=== PATIENT | female | born 1945 | race Hispanic/Latino ===

== ENCOUNTER → 2019-11-06 | Outpatient (CLI) | payer MEDICARE ==
[~2019-11-06] MED LIST: ADV250 IH; AMLO10TA7 PO; ATOR10 PO; CIPR-245 PO; GABA-533 PO; GLIP10TA9 PO; LEVO50TA11 PO; LOSA100T58 PO; MELO-106 PO; METF-446 PO; MONT10TA24 PO; SERT50TA12 PO; TRAZ-185 PO; WARF-57 PO
== END | disposition home or self-care (01) ==
LOC: OIH 09:19
PROVIDERS: ATTEND Family Medicine
DX: R06.02 Shortness of breath (principal); I70.0 Atherosclerosis of aorta; M47.815 Spondylosis without myelopathy or radiculopathy, thoracolumbar region
CPT/HCPCS: 71046

== ENCOUNTER → 2020-01-17 | Outpatient (CLI) | payer MEDICARE ==
[~2020-01-17] MED LIST changes: -MONT10TA24 PO; +MONT10TA26 PO
== END | disposition home or self-care (01) ==
LOC: RAH 10:17
PROVIDERS: ATTEND Family Medicine
DX: Z12.31 Encounter for screening mammogram for malignant neoplasm of breast (principal)
CPT/HCPCS: 77067

== ENCOUNTER 2020-02-08 10:32 | Emergency (ER) | payer MEDICARE ==
[2020-02-08] MEDS ORDERED: ONDANSETRON ODT 4 MG TAB ONE (11:07)
[2020-02-08] MEDS ORDERED: MORPHINE SULFATE 4 MG/1ML SYG ONE (11:07)
== END 2020-02-08 12:38 | disposition home or self-care (01) ==
LOC: EDH 10:32
DX: M25.511 Pain in right shoulder (principal); E11.9 Type 2 diabetes mellitus without complications; I10 Essential (primary) hypertension; J45.909 Unspecified asthma, uncomplicated; M19.90 Unspecified osteoarthritis, unspecified site
CPT/HCPCS: 96372; 99283; J2270

== ENCOUNTER → 2024-03-18 | Outpatient (CLI) | payer OTHER, MEDICARE ==
[~2024-03-18] MED LIST changes: +ACET-2079 PO; -ADV250 IH; -AMLO10TA7 PO; +APIX2.5T PO; +CETI10TA57 PO; -CIPR-245 PO; +ESCI20TA38 PO; +FLUT1AER PO; +FURO40TA5 PO; -GABA-533 PO; -LOSA100T58 PO; -MELO-106 PO; -METF-446 PO; +MONT-39 PO; -MONT10TA26 PO; +PANT40TA54 PO; +PREG300C20 PO; -SERT50TA12 PO; -TRAZ-185 PO; -WARF-57 PO
== END | disposition home or self-care (01) ==
LOC: SHCH 12:31
PROVIDERS: ATTEND Internal Medicine Cardiovascular Disease
DX: I08.0 Rheumatic disorders of both mitral and aortic valves (principal); R07.9 Chest pain, unspecified
CPT/HCPCS: 93306

== ENCOUNTER → 2024-12-22 | Outpatient (CLI) | payer OTHER, MEDICARE ==
[~2024-12-22] MED LIST changes: +GLIP10TA16 PO; -GLIP10TA9 PO
[2024-12-22 12:30] LABS: BASOPHILS # (AUTO) 0.06 K/uL (0.00-0.20); BASOPHILS % (AUTO) 0.6 % (0.0-5.0); EOSINOPHILS # (AUTO) 0.52 K/uL (0.00-0.70); EOSINOPHILS % (AUTO) 4.9 % (0.0-8.0); HEMATOCRIT 36.3 % (36-48); IMMATURE GRANULOCYTE ABSOLUTE 0.03 K/uL (0-1); LYMPHOCYTES # (AUTO) 1.8 K/uL (1.0-4.8); LYMPHOCYTES % (AUTO) 16.4 % (21.0-51.0); MEAN CORPUSCULAR HEMOGLOBIN 27.9 pg (27.0-33.0); MEAN CORPUSCULAR HGB CONC 31.4 g/dL (32.0-36.0); MEAN CORPUSCULAR VOLUME 88.8 fL (79-99); MONOCYTES % (AUTO) 9.4 % (3.0-13.0); NEUTROPHILS # (AUTO) 7.3 K/uL (1.8-7.7); NEUTROPHILS % (AUTO) 68.4 % (40.0-77.0); PLATELET COUNT (AUTO) 267 K/uL (130-400); RED BLOOD CELL COUNT(AUTO) 4.09 MIL/uL (4.00-5.50); WHITE BLOOD COUNT (AUTO) 10.7 K/uL (4.8-10.8)
[2024-12-22 12:55] LABS: CREATININE 1.4 mg/dL (0.5-1.0); POTASSIUM 4.1 mmol/L (3.5-5.1); THYROID STIMULATING HORMONE 2.91 uIU/mL (0.36-3.74)
[2024-12-22 13:01] LABS: B-TYPE NATRIURETIC PEPTIDE 168 pg/mL (0-100)
== END | disposition home or self-care (01) ==
LOC: LAB 10:31
PROVIDERS: ATTEND Internal Medicine Cardiovascular Disease
DX: I10 Essential (primary) hypertension (principal); E03.9 Hypothyroidism, unspecified; R53.83 Other fatigue; Z79.899 Other long term (current) drug therapy
CPT/HCPCS: 36415; 80048; 82306; 83880; 84443; 85025